=== PATIENT | male | born 2000 | race Caucasian/White ===

== ENCOUNTER 2018-02-07 11:34 | Emergency (ER) | payer OTHER, MEDICAID ==
[~2018-02-07 11:34] MED LIST: ADDERAL XR PO; ALB0.5 INH; ALB17R INH; AMPH10TA20 PO; AZI200L; AZIT100S20 PO; BUDE10.2 IH; CETI5TAB22 PO; CIT20 PO; CLON1PAT31 TD; FLU44R; FLUINH; GLYPS PR; HYDROCORTISONE; METHYLPREDNISOLONE PO; MIR15 PO; MONT5TAB15 PO; PRE10 PO; PRE20 PO; ZITHROMAX
--- NOTE | 2018-02-07 11:51 | ER Report ---
History and Physical Time Seen By MD: 11:51 HPI/ROS 17 y/o otherwise healthy male, left handed. Was slicing bread at his job, and cut his right index finger with the knife. Bleeding has since resolved. Tetnus status unknown Remainder of the 14 system rev: Yes Allergies: Coded Allergies: cat dander (Verified Allergy, Intermediate, sneeze and watery eyes, 02/07/18) dog dander (Verified Allergy, Intermediate, sneeze and watery eyes, 02/07/18) tree and shrub pollen (Verified Allergy, Intermediate, sneeze and hives with contact, 02/07/18) Soy (Verified Allergy, Mild, ABD PAIN, 02/07/18) milk (Verified Allergy, Mild, ABD PAIN, 02/07/18) Uncoded Allergies: PEANUTS (Allergy, Mild, ITCHY THROAT, 01/09/10) Home Meds Reported Medications Fluoxetine Hcl (PROZAC) 10 Mg Capsule, 10 MG PO QDAY, CAPSULE 02/07/18 Albuterol Sulfate (Albuterol Inh Conc) 2.5 Mg/0.5 Ml Nebu, 2.5 MG INH ONCE, 0 Refills DILUTE BEFORE USING 03/07/11 Budesonide/Formoterol Fumarate (Symbicort 160/4.5 Mcg Inhaler) 10.2 Gm Hfa.aer.ad, 10.2 GM IH, 0 Refills 03/07/11 Cetirizine Hcl (Zyrtec) 5 Mg Tablet, 5 MG PO DAILY 03/07/11 Montelukast Sodium (Singulair) 5 Mg Tab.chew, 5 MG PO QDAY, #20 0 Refills 03/07/11 Albuterol (Proventil Inhaler) 17 Gm Inh, 1 - 2 PUFF INH, 0 Refills 2 PUFFS 03/07/11 Discontinued Reported Medications Prednisone (Prednisone) 10 Mg Tab, 10 MG PO QDAY, 0 Refills 03/07/11 Mirtazapine (Remeron) 15 Mg Tab, 30 MG PO HS, 0 Refills 03/07/11 Amphet Asp/Amphet/D-Amphet (Adderall 10 Mg Tablet) 10 Mg Tablet, 25 MG PO DAILY, 0 Refills 03/07/11 Reviewed Nurses Notes: Yes Old Medical Records Reviewed: Yes Hx Smoking: No Smoking Status: Never Smoker Exposure to Second Hand Smoke?: No Hx Substance Use Disorder: No Hx Alcohol Use: No Constitutional Vital Sign - Last 24 Hours 02/07/18 11:53 Temp 98.6 Pulse 75 Resp 16 B/P (MAP) 129/78 Pulse Ox 94 O2 Delivery Room Air Physical Exam General appearance: alert no distress Right hand: There is no significant swelling. There is a 2 cm linear laceration to the right index finger. No tendon involvement. Full ROM. Skin: see above Neurologic exam: The patient has normal sensation distal to the injury. Tendon function is intact. Vascular exam: Normal pulses and capillary refill in the fingers DIFFERENTIAL DIAGNOSIS: After history and physical exam differential diagnosis was considered for hand injury including contusion, fracture, ligamentous and tendon injuries. Medical Decision Making ED Course/Re-evaluation ED Course Simple laceration repair after cutting it with a knife at work. Irrigated and Dermabonded. Procedure Procedure: Laceration repair with Dermabond Verbal consent was obtained from the patient. The 2cm laceration on the right index finger. The wound was irrigated and explored to its base with a gloved finger. There were no deep structures involved. No tendon injury was identified. The wound was repaired with Dermabond. The procedure was performed by myself. Decision to Disposition Date: Feb 07, 2018 Decision to Disposition Time: 15:17 Depart Departure Latest Vital Signs Vital Signs Date Time Temp Pulse Resp B/P (MAP) Pulse Ox O2 Delivery O2 Flow Rate FiO2 02/07/18 11:53 98.6 75 16 129/78 94 Room Air Impression: Primary Impression: Finger laceration Condition: Improved Disposition: HOME OR SELF-CARE Referrals: KERI SHARPE MD (PCP) Patient Instructions: Finger Laceration (ED) Problem Qualifiers Primary Impression: Finger laceration Encounter type: initial encounter Finger: index finger Damage to nail status: without damage Foreign body presence: without foreign body Laterality: right Qualified Codes: S61.210A - Laceration without foreign body of right index finger without damage to nail, initial encounter ANNALISE MURRAY MD Feb 07, 2018 11:51
[2018-02-07 11:53] VITALS: BP 129/78
[2018-02-07] MEDS ORDERED: FLUO-201 PO (12:02)
== END 2018-02-07 15:20 | disposition home or self-care (01) ==
LOC: ER 11:58
DX: S61.210A Laceration without foreign body of right index finger without damage to nail, initial encounter (principal); W26.0XXA Contact with knife, initial encounter
CPT/HCPCS: 99283